=== PATIENT | female | born 1945 | race Caucasian/White ===

== ENCOUNTER 2021-11-05 13:30 | Inpatient (IN) | payer MEDICARE, OTHER ==
[2021-11-07 09:21] VITALS: BMI 24.1
[2021-11-08] MEDS ORDERED: Lidocaine 1% MPF 2 ML VIAL ONE (08:01)
[2021-11-08] MEDS ORDERED: Bupivacaine 0.25% HCL 30 ML VIAL ONE (08:29)
[2021-11-08] MEDS ORDERED: EPINEPHrine 1 MG/ML AMP ONE (08:29)
[2021-11-08] MEDS ORDERED: Pantoprazole 40 MG VIAL ONE (09:41)
[2021-11-08] MEDS ORDERED: Fentanyl 100 MCG/2 ML VIAL ONE ×3 (11:25→14:29)
[2021-11-08] MEDS ORDERED: Phenylephrine 10 MG/ML VIAL ONE (11:25)
[2021-11-08] MEDS ORDERED: Ketamine 50 MG/ML (10ML VIAL) ONE (11:25)
[2021-11-08] MEDS ORDERED: SUGAMMADEX SODIUM 200 MG/2 ML VIAL ONE (11:26)
[2021-11-08] MEDS ORDERED: HYDROmorphone 0.5 MG/0.5 ML SYRINGE ONE (11:26)
[2021-11-08] MEDS ORDERED: PROPOFOL 20 ML ONE (11:33)
[2021-11-08] MEDS ORDERED: Clindamycin/D5W 900 MG in Premix Bag 1 BAG IVPB SCH (11:45)
[2021-11-08] MEDS ORDERED: Morphine 2 MG/ML VIAL SLOW IVP PRN (13:13)
[2021-11-08] MEDS ORDERED: Communication Order-Pharmacy FS PRN (13:15)
[2021-11-08] MEDS ORDERED: Cyanocobalamin 1000 MCG/ML VIAL IM SCH (13:30)
[2021-11-08] MEDS: Clindamycin/D5W 600 MG in Premix Bag 1 BAG IVPB SCH (21:06)
[2021-11-08] MEDS: Aspirin 81 mg Enteric Coated Tablet PO SCH (21:06)
[2021-11-09] MEDS: HYDROcodone/Acetaminophen 10/325 mg Tablet PO PRN ×3 (00:39→14:26)
[2021-11-09] MEDS: Clindamycin/D5W 600 MG in Premix Bag 1 BAG IVPB SCH (03:50)
[2021-11-09] MEDS: Aspirin 81 mg Enteric Coated Tablet PO SCH (08:39)
[2021-11-09] MEDS ORDERED: Lisinopril 5 MG TAB PO SCH (09:00)
[2021-11-09 13:04] VITALS: BP 117/53; TEMP 97.1
== END 2021-11-09 15:00 | disposition home or self-care (01) | DRG 497 ==
LOC: CSHERHOLD 11-08 07:18 → CSHTELE 11-08 15:33
PROVIDERS: ADMIT Orthopaedic Surgery; ATTEND Orthopaedic Surgery
PROC: 0SP304Z Removal of Internal Fixation Device from Lumbosacral Joint, Open Approach (ICD-10-PCS; principal; 2021-11-08)
PROC: 0QP004Z Removal of Internal Fixation Device from Lumbar Vertebra, Open Approach (ICD-10-PCS; 2021-11-08)
PROC: 0QP104Z Removal of Internal Fixation Device from Sacrum, Open Approach (ICD-10-PCS; 2021-11-08)
DX: T84.226A Displacement of internal fixation device of vertebrae, initial encounter (principal); Z88.0 Allergy status to penicillin; Z88.8 Allergy status to other drugs, medicaments and biological substances; Y83.8 Other surgical procedures as the cause of abnormal reaction of the patient, or of later complication, without mention of misadventure at the time of the procedure
CPT/HCPCS: 72100; 80048; 85027; 85610; 85730; 93005; 93010; C1889; C9113; J0171; J1170; J2370; J2704; J3010; J3490; S0020; U0003; U0005

== ENCOUNTER 2021-11-06 12:36 | Outpatient (CLI) | payer MEDICARE, OTHER ==
[2021-11-06 13:26] LABS: Hemoglobin 14.4 g/dL (12.0-15.5); Mean Corpuscular HGB CONC 35.4 g/dL (32.0-36.0); Mean Corpuscular Hemoglobin 32.2 pg (27.0-33.0); Mean Corpuscular Volume 91.1 fl (81.6-98.3); Mean Platelet Volume 9.5 fl (7.4-10.4); Platelet Count 216 10x3/uL (150-450); RBC Distribution Width 12.8 % (11.5-14.5); Red Blood Cell (RBC) Count 4.47 10x6/uL (3.90-5.03); White Blood Cell (WBC) Count 8.8 10x3/uL (3.5-10.5)
[2021-11-06 13:39] LABS: INR-International Normal Ratio 0.9; PTT 23.6 sec (22.0-33.0); Prothrombin Time 10.3 sec (9.5-12.1)
[2021-11-06 13:41] LABS: Anion Gap 16 mmol/L (10-20); BUN (Urea Nitrogen) 9 mg/dL (9.8-20.1); Calc. Creatinine Clearance 0 mL/min (70-130); Calcium 9.4 mg/dL (7.8-10.44); Carbon Dioxide 23 mmol/L (23-31); Chloride 104 mmol/L (98-107); Glucose 107 mg/dL (83-110); Potassium 4.1 mmol/L (3.5-5.1); Sodium 139 mmol/L (136-145)
== END 2021-11-06 12:37 | disposition home or self-care (01) ==
LOC: CSHLAB 12:36
PROVIDERS: ATTEND Specialist
DX: Z01.818 Encounter for other preprocedural examination (principal); Z20.822 Contact with and (suspected) exposure to COVID-19; M54.50 Low back pain, unspecified; T84.498S Other mechanical complication of other internal orthopedic devices, implants and grafts, sequela
CPT/HCPCS: 80048; 85027; 85610; 85730; 93005; 93010; U0003; U0005